=== PATIENT | male | born 1960 | race Caucasian/White ===

== ENCOUNTER 2018-01-07 00:49 | Emergency (ER) | payer MEDICARE ==
[2018-01-07] MEDS ORDERED: Ketorolac 30 MG/ML SDV IM STA (02:21)
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
[2018-01-07] MEDS ORDERED: Insulin Detemir 100 Units/ML 3 ML Pen SUBCUT STA (03:08)
[2018-01-07] MEDS ORDERED: metFORMIN 500 MG Tab PO ONE (03:11)
[2018-01-07] MEDS ORDERED: Pregabalin 75 MG Cap PO STA (03:11)
[2018-01-07] MEDS ORDERED: Pregabalin 25 MG Cap PO STA (03:11)
--- NOTE | 2018-01-07 15:28 | CR ---
Lumbar spine: AP and lateral views of the lumbar spine were obtained. Comparison: No prior lumbar spine imaging. Intravertebral disc fixation devices are seen at L4 and L5 with transpedicle screws seen within L4, L5 and S1. Mild disc space narrowing is noted at T10-T11, T11-T12 and L1-L2. Mild disc space narrowing also noted L2-L3. Minimal scattered endplate osteophytes are seen. Pedicles as well as visualized transverse and spinous processes are intact. Intact bony fusion is seen between L4 and L5. Sacroiliac joints are within normal limits. Impression: 1. Previous surgery at L4-L5 and L5-S1. 2. Minimal degenerative change as noted above. 3. Nothing acute is appreciated on two-view lumbar spine exam. Diagnostic code #2
== END 2018-01-07 03:33 | disposition home or self-care (01) ==
LOC: JD.ED 00:49
DX: M54.5 Low back pain (principal); G89.29 Other chronic pain; E11.65 Type 2 diabetes mellitus with hyperglycemia; Z79.899 Other long term (current) drug therapy; F17.210 Nicotine dependence, cigarettes, uncomplicated; Z79.84 Long term (current) use of oral hypoglycemic drugs
CPT/HCPCS: 72100; 82962; 96372; 99283; A9270; J1815; J1885